=== PATIENT | female | born 1955 | race Caucasian/White ===

== ENCOUNTER 2022-06-29 21:53 | Inpatient (IN) | payer MEDICARE, OTHER ==
[~2022-06-29] VITALS: Ht 152.4 cm; Wt 52.6 kg
[2022-06-29] MEDS ORDERED: TRAZ-182 PO (22:10)
[2022-06-29] MEDS ORDERED: OLAN5TAB70 PO (22:10)
[2022-06-29] MEDS ORDERED: CLON0.5T4 PO (22:10)
[2022-06-29] MEDS ORDERED: ACET-2154 PO (22:10)
[2022-06-29] MEDS ORDERED: MULT-619 PO (22:10)
[2022-06-29] MEDS ORDERED: DOCU100C36 PO (22:10)
--- NOTE | 2022-06-29 22:26 | NUR ---
Dr. Jimenez at bedside. MSE in progress.
[2022-06-29] MEDS ORDERED: CLONAZEPAM 0.5 MG TABLET PO ONE ×2 (22:30→23:15)
[2022-06-29] MEDS ORDERED: OLANZAPINE 5 MG TABLET PO ONE ×2 (22:30→23:15)
[2022-06-29 22:31] LABS: *BILIRUBIN,URIN NEGATIVE (NEGATIVE); *BLOOD, URINE NEGATIVE (NEGATIVE); *CLARITY,URINE CLEAR (CLEAR); *COLOR,URINE YELLOW (YELLOW); *KETONES,URINE NEGATIVE (NEGATIVE); *UROBILINOGEN,URINE 0.2 E.U./dl (NORMAL); LEUKOCYTE ESTERASE ,URINE 1+ (NEGATIVE); NITRITE, URINE NEGATIVE (NEGATIVE); UGLUCOSE NEGATIVE (NEGATIVE)
[2022-06-29 22:35] LABS: BACTERIA,URINE NONE SEEN /HPF (NONE SEEN); RBC,URINE 0-3 /HPF (0-3); SQUAMOUS EPITHELIAL CELL,UR FEW /HPF (NONE SEEN); WBC,URINE 0-3 /HPF (0-3)
[2022-06-29] MEDS ORDERED: OLANZAPINE 10 MG VIAL IM ONE ×2 (22:42→22:45)
[2022-06-29 22:43] LABS: *AMPHETAMINE, URINE NEGATIVE (NEGATIVE); *CANNABINOID, URINE NEGATIVE (NEGATIVE); *COCCAINE, URINE NEGATIVE (NEGATIVE); *OPIATE, URINE NEGATIVE (NEGATIVE); *PHENCYCLIDINE SCREEN,URINE NEGATIVE (NEGATIVE)
[2022-06-29 22:51] LABS: HEMATOCRIT 40.7 % (31.2-41.9); MEAN CORPUSCULAR HEMOGLOBIN 27.8 uug (24.7-32.8); MEAN CORPUSCULAR VOLUME 81.7 fL (75.5-95.3); PLATELET COUNT (AUTO) 291 K/uL (179-408)
[2022-06-29 22:55] LABS: CARBON DIOXIDE 27 mmol/L (21-32); CHLORIDE 104 mmol/L (98-107); GLUCOSE 104 mg/dL (74-106); UREA NITROGEN, BLOOD 12 mg/dL (7-18)
[2022-06-29 23:00] LABS: ALANINE AMINOTRANSFERASE 19 U/L (14-59); ALKALINE PHOSPHATASE 98 U/L (50-136); ASPARTATE AMINOTRANSFERASE 20 U/L (15-37); BILIRUBIN,DIRECT < 0.1 mg/dL (0.0-0.2); BILIRUBIN,TOTAL 0.3 mg/dL (0.2-1.0)
[2022-06-29 23:08] LABS: THYROID STIMULATING HORMONE 3.361 mIU/mL (0.358-3.740)
[2022-06-29] MEDS ORDERED: CLONAZEPAM 1 MG TABLET ONE (23:08)
[2022-06-29] MEDS ORDERED: OLANZAPINE 5 MG TABLET ONE (23:08)
[2022-06-29 23:14] LABS: ACETAMINOPHEN < 2.0 ug/mL (10-30); ETHANOL < 3 MG/DL (0-0)
--- NOTE | 2022-06-30 00:30 | NUR ---
Called MHU for bed (given 140 B). Report given to Gretchen RO.
--- NOTE | 2022-06-30 00:40 | NUR ---
Called [facility] for panel call. Dr. Whipple sponge hooker.
--- NOTE | 2022-06-30 01:45 | NUR ---
Pt. admitted to MHU rm 140 B, under care of Dr. Arora and Dr. Whipple. Belongs List completed Maria Eugenia RN aware of patient's arrival to unit.
[2022-06-30] MEDS ORDERED: ZOLPIDEM 5 MG TABLET PO PRN (02:15)
[2022-06-30] MEDS ORDERED: MAG HYDROX/AL HYDROX/SIMETH 30 ML LIQUID UDC PO PRN (02:15)
[2022-06-30] MEDS ORDERED: BLOOD SUGAR DIAGNOSTIC 1 EACH STRIP VI ONE (02:15)
[2022-06-30] MEDS ORDERED: MAGNESIUM HYDROXIDE 30 ML LIQUID UDC PO PRN (02:15)
[2022-06-30] MEDS ORDERED: ACETAMINOPHEN 325 MG TABLET PO PRN ×2 (02:15→02:45)
[2022-06-30 02:34] VITALS: BP 151/94
[2022-06-30] MEDS ORDERED: DOCUSATE SODIUM 100 MG CAPSULE PO PRN (02:45)
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
--- NOTE | 2022-06-30 06:49 | NUR ---
GPS: Pt.slept for 2.45 last night. Has poor insight to her mental illness and situation. Safe environment provided. No aggressive behavior noted. Re-directed and re-assured prn. Will continue to monitor.
[2022-06-30] MEDS: MULTIVITAMINS,THERAPEUTIC TABLET PO SCH (10:00)
[2022-06-30] MEDS ORDERED: QUETIAPINE FUMARATE 25 MG TABLET PO SCH ×2 (10:15→21:00)
--- NOTE | 2022-06-30 15:15 | NUR ---
Patient is confused, disoriented, disorganized, in denial about her hold. Pt. states "My brother in law told me that I'm not staying longer than 2 days, and he decided how long I'm staying. "I don't like my doctor". A/O X 2 to person, place. Self care. Pt. is encourage to verbalize feelings and emotions. Fall and safety precautions implemented.
[2022-06-30 16:00] VITALS: BP 158/81
[2022-06-30] MEDS ORDERED: DIVALPROEX 250 MG TABLET.DR PO SCH (17:00)
[2022-06-30 20:06] VITALS: BP 165/87
[2022-06-30 20:35] VITALS: BP 151/81
--- NOTE | 2022-06-30 21:20 | NUR ---
GPS: Pt. is anxious at times. Re-assured and re-directed prn. Took bedtime meds.earlier after some persuasion from staff. Poor insight and impaired judgement. Fall precautions observed. No aggressive behavior noted. Will continue to monitor.
--- NOTE | 2022-07-01 06:52 | NUR ---
GPS: Pt.refused scheduled blood drawing at this time despite explanation of importance. Easily irritable when being persuaded. Safety emphasized.
[2022-07-01 07:30] VITALS: BP 155/81
[2022-07-01] MEDS ORDERED: QUETIAPINE FUMARATE 25 MG TABLET PO SCH (09:00)
[2022-07-01] MEDS: OLANZAPINE 5 MG TABLET PO SCH ×2 (11:04→20:39)
[2022-07-01] MEDS: MULTIVITAMINS,THERAPEUTIC TABLET PO SCH (11:04)
[2022-07-01] MEDS: LITHIUM CARBONATE 150 MG CAPSULE PO SCH ×3 (11:04→16:58)
--- NOTE | 2022-07-01 15:18 | NUR ---
ROSSI Family Contact: ROSSI spoke to pt's sister, Citlali ([phone]) regarding pt's current status and discharge plan. ROSSI informed Citlali that once pt is cleared for discharge and ready to return to [facility] located at [address] [place] [address].
--- NOTE | 2022-07-01 16:04 | NUR ---
ROSSI Initial Discharge Note: Pt currently resides at [facility] ([phone]) located at [address] [place] [address]. ROSSI will contact the admissions team at [facility] to ensure pt's return upon discharge. ROSSI will continue to work with pt, family and MD to ensure a safe and proper discharge plan.
[2022-07-01 17:01] VITALS: BP 152/96
[2022-07-01] MEDS: TRAZODONE 50 MG TABLET PO SCH (20:39)
[2022-07-01 21:11] VITALS: BP 151/79
[2022-07-02 07:30] VITALS: BP 141/83
[2022-07-02] MEDS: LORAZEPAM 1 MG TABLET PO PRN (08:00)
[2022-07-02] MEDS: MULTIVITAMINS,THERAPEUTIC TABLET PO SCH (08:05)
[2022-07-02] MEDS: LITHIUM CARBONATE 150 MG CAPSULE PO SCH ×3 (08:05→17:01)
[2022-07-02] MEDS: OLANZAPINE 5 MG TABLET PO SCH ×2 (08:06→21:07)
[2022-07-02] MEDS: LISINOPRIL 5 MG TABLET PO SCH (09:06)
[2022-07-02 16:00] VITALS: BP 136/80
--- NOTE | 2022-07-02 17:36 | NUR ---
Gps/Nurse Case Manager- Patient wants to be reassured she will be discharge back to [facility].Had been compliant with her routine meds., redirectable
[2022-07-02 20:00] VITALS: BP 119/71
[2022-07-02] MEDS: TRAZODONE 50 MG TABLET PO SCH (21:07)
[2022-07-03] MEDS: LITHIUM CARBONATE 150 MG CAPSULE PO SCH ×3 (08:33→16:33)
[2022-07-03] MEDS: LISINOPRIL 5 MG TABLET PO SCH (08:35)
[2022-07-03] MEDS: MULTIVITAMINS,THERAPEUTIC TABLET PO SCH (08:35)
[2022-07-03] MEDS: OLANZAPINE 5 MG TABLET PO SCH ×2 (08:35→20:54)
[2022-07-03 08:52] VITALS: BP 108/65
--- NOTE | 2022-07-03 11:01 | NUR ---
Gps/Welcome Center Attendant- In and out of her group activity, claimed she rather watch TV but noted patient preferred to stay in bed, too distracted , claimed shes looking forward to going back to [facility] in am.
[2022-07-03 16:18] VITALS: BP 111/75
[2022-07-03 20:00] VITALS: BP 124/68
[2022-07-03] MEDS: TRAZODONE 50 MG TABLET PO SCH (20:53)
--- NOTE | 2022-07-04 04:05 | NUR ---
GPS NOTES: Patient is withdrawn and isolative to her room, A&0x2. Encouraged to verbalized feelings but unable to as she just want to rest at this time. She denies SI, contract safety strategies w/ the copy writer. Only interacts when engaged. Med-compliant. Sleeping mostly during shift, frequenting the rest room. Safety strategies in place.
[2022-07-04] MEDS: MULTIVITAMINS,THERAPEUTIC TABLET PO SCH (08:42)
[2022-07-04] MEDS: OLANZAPINE 5 MG TABLET PO SCH ×2 (08:42→20:14)
[2022-07-04] MEDS ORDERED: LITHIUM CARBONATE 150 MG CAPSULE PO SCH (08:45)
[2022-07-04] MEDS: LITHIUM CARBONATE 300 MG CAPSULE PO SCH ×2 (08:45→17:33)
[2022-07-04] MEDS: LISINOPRIL 5 MG TABLET PO SCH (08:45)
--- NOTE | 2022-07-04 10:58 | NUR ---
SW Discharge Update: Elvia from [facility] [address] [facility] [place] [address] contacted this proposal lead writer and informed this proposal lead writer that they are ready for the pt's return upon discharge.
--- NOTE | 2022-07-04 13:09 | NUR ---
Firearms Report: Repairer General completed and submitted a [employer] firearms report for 5150 a danger to others and grave disability certifications. A copy of report has been placed in patient chart.
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
[2022-07-04 16:30] VITALS: BP 144/77
[2022-07-04] MEDS: TRAZODONE 50 MG TABLET PO SCH (20:14)
[2022-07-04 20:58] VITALS: BP 121/74
--- NOTE | 2022-07-05 06:55 | NUR ---
GPS: Pt.slept 5 hrs.last night. No increased agitation noted. Re-directed and re-assured prn. Fall precautions observed. Will continue to monitor.
[2022-07-05 07:22] LABS: POTASSIUM 4.2 mmol/L (3.5-5.1)
[2022-07-05 07:30] VITALS: BP 119/66
[2022-07-05] MEDS: LISINOPRIL 5 MG TABLET PO SCH (08:04)
[2022-07-05] MEDS: MULTIVITAMINS,THERAPEUTIC TABLET PO SCH (08:04)
[2022-07-05] MEDS: LITHIUM CARBONATE 300 MG CAPSULE PO SCH ×2 (08:04→16:33)
[2022-07-05] MEDS: OLANZAPINE 5 MG TABLET PO SCH ×2 (08:05→20:30)
--- NOTE | 2022-07-05 15:38 | NUR ---
GPS: Nursing Notes: Destructive Behavior To Others: Patient is awake and responding to her name, cooperative with nursing care, compliant with her medications, following staff directions, no aggressive behavior noted, participating in therapeutic groups, interactive with peers, forgetful at times, unable to formulate a viable plan for self care, needs minimal assistance with ADL's, continue to monitor for safety, continue with treatment plan.
[2022-07-05 16:34] VITALS: BP 150/91
[2022-07-05 20:08] VITALS: BP 142/78
[2022-07-05] MEDS: TRAZODONE 50 MG TABLET PO SCH (20:30)
[2022-07-06 07:30] VITALS: BP 167/77
[2022-07-06] MEDS: LITHIUM CARBONATE 300 MG CAPSULE PO SCH ×2 (10:19→17:36)
[2022-07-06] MEDS: LISINOPRIL 5 MG TABLET PO SCH (10:19)
[2022-07-06] MEDS: MULTIVITAMINS,THERAPEUTIC TABLET PO SCH (10:20)
[2022-07-06] MEDS: OLANZAPINE 5 MG TABLET PO SCH ×2 (10:20→20:53)
[2022-07-06] MEDS: AMLODIPINE 5 MG TABLET PO SCH ×2 (15:01→20:52)
[2022-07-06] MEDS: ENSURE ENLIVE (VAN) 240 ML LIQUID PO SCH ×2 (15:01→17:36)
--- NOTE | 2022-07-06 15:05 | NUR ---
Pt is at risk for falls d/t unsteady gait and balance. Pt refuses to use a walker when ambulating.
[2022-07-06 16:00] VITALS: BP 121/62
[2022-07-06] MEDS: LORAZEPAM 1 MG TABLET PO PRN (18:46)
--- NOTE | 2022-07-06 19:17 | NUR ---
Gave Ativan PRN per patient request d/t increased anxiety brought on via room mate.
[2022-07-06 20:16] VITALS: BP 129/70
[2022-07-06] MEDS: TRAZODONE 50 MG TABLET PO SCH (20:53)
[2022-07-07 07:30] VITALS: BP 116/65
[2022-07-07] MEDS: ENSURE ENLIVE (VAN) 240 ML LIQUID PO SCH ×2 (08:00→17:45)
[2022-07-07] MEDS: MULTIVITAMINS,THERAPEUTIC TABLET PO SCH (09:53)
[2022-07-07] MEDS: LITHIUM CARBONATE 300 MG CAPSULE PO SCH ×2 (09:53→16:36)
[2022-07-07] MEDS: AMLODIPINE 5 MG TABLET PO SCH ×2 (09:53→20:35)
[2022-07-07] MEDS: LISINOPRIL 5 MG TABLET PO SCH (09:54)
[2022-07-07] MEDS: OLANZAPINE 5 MG TABLET PO SCH ×2 (09:54→20:38)
[2022-07-07 16:00] VITALS: BP 133/69
--- NOTE | 2022-07-07 17:32 | NUR ---
Gps/Metal Door Assembler- Noted patient crwling on the floor, when asked why she's crawling, claimed she needs a walker and no one is providing her needs. Informed patient will request P.T. to provide in am. noted patient ambulates holding on to the neves for support
[2022-07-07 20:08] VITALS: BP 126/64
[2022-07-07] MEDS: TRAZODONE 50 MG TABLET PO SCH (20:35)
[2022-07-08] MEDS: LORAZEPAM 1 MG TABLET PO PRN (00:45)
[2022-07-08 07:30] VITALS: BP 129/91
[2022-07-08] MEDS: ENSURE ENLIVE (VAN) 240 ML LIQUID PO SCH ×2 (08:00→18:15)
[2022-07-08] MEDS: MULTIVITAMINS,THERAPEUTIC TABLET PO SCH (08:46)
[2022-07-08] MEDS: LITHIUM CARBONATE 300 MG CAPSULE PO SCH ×2 (08:47→16:40)
[2022-07-08] MEDS: OLANZAPINE 5 MG TABLET PO SCH ×2 (08:47→20:29)
[2022-07-08] MEDS: AMLODIPINE 5 MG TABLET PO SCH ×2 (08:48→20:30)
[2022-07-08] MEDS: LISINOPRIL 5 MG TABLET PO SCH (08:48)
--- NOTE | 2022-07-08 14:57 | NUR ---
Gps/Campus Supervisor- Kept asking when she's leaving, wants to go back to [facility] , Retail Cashier Noreen was able to talk to the patient, possible dc plan next few days when bed available Patient is forgetful , perseverates , kept asking same questions, reassured patient .
[2022-07-08 16:16] VITALS: BP 119/72
[2022-07-08 19:57] VITALS: BP 122/76
[2022-07-08] MEDS: TRAZODONE 50 MG TABLET PO SCH (20:29)
[2022-07-09 07:41] VITALS: BP 109/66
[2022-07-09] MEDS: ENSURE ENLIVE (VAN) 240 ML LIQUID PO SCH ×2 (08:00→16:37)
[2022-07-09] MEDS: AMLODIPINE 5 MG TABLET PO SCH ×2 (08:54→21:16)
[2022-07-09] MEDS: OLANZAPINE 5 MG TABLET PO SCH ×2 (08:54→21:16)
[2022-07-09] MEDS: MULTIVITAMINS,THERAPEUTIC TABLET PO SCH (08:54)
[2022-07-09] MEDS: LISINOPRIL 5 MG TABLET PO SCH (08:55)
[2022-07-09] MEDS: LITHIUM CARBONATE 300 MG CAPSULE PO SCH ×2 (08:55→16:36)
--- NOTE | 2022-07-09 13:26 | NUR ---
GPS: Nursing Notes: Destructive Behavior To Others: Patient is awake and responding to her name, cooperative with nursing care, compliant with her medications, impaired judgement at times, episodes of crawling on the floor, stated "I do not want to fall..", redirected during shift, needs minimal assistance with ADL's, unable to formulate a viable plan for self care, continue with treatment plan.
[2022-07-09 16:29] VITALS: BP 140/85
[2022-07-09 19:50] VITALS: BP 121/70
[2022-07-09] MEDS: TRAZODONE 50 MG TABLET PO SCH (21:16)
--- NOTE | 2022-07-10 06:48 | NUR ---
Patient remained isolated and withdrawn throughout shift. Refused to drink water with medication. Pt stated "I just don't like drinking water!". Pt swallowed medications without complications/aspiration.
[2022-07-10 07:38] VITALS: BP 110/66
[2022-07-10] MEDS: ENSURE ENLIVE (VAN) 240 ML LIQUID PO SCH ×2 (08:00→16:50)
[2022-07-10] MEDS: MULTIVITAMINS,THERAPEUTIC TABLET PO SCH (08:33)
[2022-07-10] MEDS: LITHIUM CARBONATE 300 MG CAPSULE PO SCH ×2 (08:33→16:50)
[2022-07-10] MEDS: OLANZAPINE 5 MG TABLET PO SCH ×2 (08:33→20:35)
[2022-07-10] MEDS: AMLODIPINE 5 MG TABLET PO SCH ×2 (08:34→20:34)
[2022-07-10] MEDS: LISINOPRIL 5 MG TABLET PO SCH (08:34)
--- NOTE | 2022-07-10 14:21 | NUR ---
GPS: Nursing Notes: Thought Disorder: Patient is awake and responding to her name, refusing to eat her breakfast this am, but compliant with her medications, episodes of crawling on the floor, stated "I just don't want to fall... ", encouraged to use fww, but forgetful at times, unable to formulate a viable plan for self care, minimal participation in therapeutic groups, isolative and withdrawn in her room, continue to monitor for safety, continue with treatment plan.
[2022-07-10 15:38] VITALS: BP 111/58
[2022-07-10 19:55] VITALS: BP 112/64
[2022-07-10] MEDS: TRAZODONE 50 MG TABLET PO SCH (20:34)
[2022-07-11] MEDS: ENSURE ENLIVE (VAN) 240 ML LIQUID PO SCH (08:00)
[2022-07-11 08:29] VITALS: BP 116/64
[2022-07-11 08:58] VITALS: BP 116/64
[2022-07-11] MEDS: OLANZAPINE 5 MG TABLET PO SCH (08:58)
[2022-07-11] MEDS: AMLODIPINE 5 MG TABLET PO SCH (08:58)
[2022-07-11] MEDS: MULTIVITAMINS,THERAPEUTIC TABLET PO SCH (08:58)
[2022-07-11] MEDS: LISINOPRIL 5 MG TABLET PO SCH (08:58)
[2022-07-11] MEDS: LITHIUM CARBONATE 300 MG CAPSULE PO SCH (08:58)
--- NOTE | 2022-07-11 13:08 | NUR ---
ROSSI Discharge Note: Pt will be discharged to [facility] ([phone]) located at [address] [place] [address] via Ambulance transportation at 3PM. ROSSI spoke with admin coordinator, Elvia at the facility who states they are ready to accept the patient today. Pt is aware and agreeable with the discharge plan. Pt stated to this typewriter ribbon winder that she refuses for this typewriter ribbon winder and staff to release any information to her sister, Citlali ([phone]). Pt is alert and oriented x2-3, is unable to plan for self-care at this time. However, pt is willing to accept care at SNF. Pt denies any suicidal or homicidal ideation. Pt is cooperative with care. Pt will follow-up at the facility with Psychiatrist, Dr. Best and Scribing Machine Operator, Dr. Menon. Pt presents with calm mood and congruent affect. PHARMACY: [facility] ([phone]).
--- NOTE | 2022-07-11 15:00 | NUR ---
GPS: Nursing Notes: Discharge Notes: Patient is awake and responding to her name, compliant with her medications, ambulatory with fww, denies SI/HI, denies AH/VH, denies pain or discomfort at this time, denies SOB, discharge to [facility] ([phone]) located at [address] [place] [address], report given to [facility]'s RN supervisor riveting, took all her belongings, transported to facility via ambulance. Dr. Best (psychiatrist) and Dr. Menon (commissioner of internal revenue) will follow up with patient at the facility for aftercare, discharge package given to ambulance's commercial front load driver to give to facility admitting nurse.
== END 2022-07-11 15:00 | DRG 885 ==
LOC: ER 22:02 → GPS 06-30 00:55
PROVIDERS: ADMIT Psychiatry & Neurology Psychiatry; ATTEND Internal Medicine
DX: F39 Unspecified mood [affective] disorder (principal); F03.918 Unspecified dementia, unspecified severity, with other behavioral disturbance; G93.40 Encephalopathy, unspecified; F25.0 Schizoaffective disorder, bipolar type; Z20.822 Contact with and (suspected) exposure to COVID-19
CPT/HCPCS: 36415; 70030-TC; 70450; 84443; 85025; 87086; A4663; G0480; J2358; J3490